=== PATIENT | female | born 1975 | race Asian ===

== ENCOUNTER 2021-12-10 13:38 | Emergency (ER) | payer MEDICAID ==
[~2021-12-10] VITALS: Ht 157.5 cm; Wt 46.4 kg
--- NOTE | 2021-12-10 14:05 | NUR ---
Patient is calm and cooperative laying down on stretcher
[2021-12-10 14:19] VITALS: BP 116/71
[2021-12-10 14:24] LABS: BASOPHILS # (AUTO) 0.1 X10'3 (0-0.2); BASOPHILS % (AUTO) 1.2 % (0-1); EOSINOPHILS # (AUTO) 0.6 X10'3 (0-0.9); EOSINOPHILS % (AUTO) 9.3 % (0-6); HEMATOCRIT 39.2 % (35.0-45.0); HEMOGLOBIN 13.6 g/dl (12.0-16.0); LYMPHOCYTES # (AUTO) 1.8 X10'3 (1.1-4.8); LYMPHOCYTES % (AUTO) 26.7 % (21-51); MEAN CORPUSCULAR HEMOGLOBIN 31.5 PG (27.0-31.0); MEAN CORPUSCULAR HGB CONC 34.7 g/dL (33.0-36.5); MEAN CORPUSCULAR VOLUME 90.6 FL (78-98); MEAN PLATELET VOLUME 7.2 FL (7.4-10.4); MONOCYTES # (AUTO) 0.7 X10'3 (0-0.9); MONOCYTES % (AUTO) 10.7 % (2-12); NEUTROPHILS # (AUTO) 3.5 X10'3 (1.8-7.7); NEUTROPHILS % (AUTO) 52.1 % (42-75); PLATELET COUNT 472 X10'3 (140-440); RED BLOOD COUNT 4.32 X10'6 (4.20-5.60); RED CELL DISTRIBUTION WIDTH 13.9 % (11.5-14.5); WHITE BLOOD COUNT 6.6 X10'3 (4.5-11.0)
[2021-12-10 14:48] LABS: URINE AMPHETAMINE SCREEN POSITIVE (Neg); URINE BARBITUATE SCREEN NEGATIVE (Neg); URINE BENZODIAZEPINES SCREEN NEGATIVE (Neg); URINE CANNABINOID SCREEN NEGATIVE (Neg); URINE COCAINE SCREEN NEGATIVE (Neg); URINE METHADONE SCREEN NEGATIVE (Neg); URINE OPIATE SCREEN NEGATIVE (Neg); URINE PHENCYCLIDINE SCREEN NEGATIVE (Neg)
[2021-12-10 14:49] LABS: ALANINE AMINOTRANSFERASE 24 U/L (12-78); ALBUMIN 3.5 G/DL (3.4-5.0); ALKALINE PHOSPHATASE 95 IU/L (46-116); ANION GAP 10 (8-16); BILIRUBIN,TOTAL 0.4 MG/DL (0.1-1.0); BLOOD UREA NITROGEN 19 MG/DL (7-18); BUN/CREATININE RATIO 22.6 (6.6-38.0); CALCIUM 8.1 MG/DL (8.5-10.1); CHLORIDE 107 MMOL/L (99-107); CREATININE 0.84 MG/DL (0.40-0.90); ETHANOL < 0.010 GM/DL (0.0-0.010); SODIUM 143 MMOL/L (135-145); TOTAL CARBON DIOXIDE 26.3 MMOL/L (24-32); TOTAL PROTEIN 6.9 G/DL (6.4-8.2); eGFR 74 ML/MIN
[2021-12-10 14:52] LABS: GLUCOSE 140 MG/DL (70-104); POTASSIUM 3.4 MMOL/L (3.5-5.1)
[2021-12-10 14:55] LABS: CLARITY,URINE CLOUDY (Clear); COLOR,URINE YELLOW (Yellow); GLUCOSE, URINE NEGATIVE (Neg); KETONES,URINE TRACE mg/dl (Neg); LEUKOCYTE ESTERASE ,URINE TRACE (Neg); NITRITES, URINE NEGATIVE (Neg); OCCULT BLOOD,URINE NEGATIVE (Neg); PROTEIN,URINE NEGATIVE (Neg); UROBILINOGEN,URINE 0.2 E.U/dL (0.2-1.0)
[2021-12-10 14:58] LABS: UA COLLECTION TYPE CLN CATCH MIDSTREAM
--- NOTE | 2021-12-10 15:01 | NUR ---
Patient laying on strecher appears to be sleeping.
[2021-12-10 15:03] LABS: ASPARTATE AMINO TRANSFERASE 17 U/L (10-37)
[2021-12-10 15:06] LABS: SQUAMOUS EPITHELIAL CELL,UR MANY /LPF (FEW)
[2021-12-10 15:08] LABS: CAL OXALATE CRYSTALS 4+ /HPF (NEGATIVE)
[2021-12-10 15:09] LABS: WBC,URINE 0-4 /HPF (0-4)
[2021-12-10 15:11] LABS: BACTERIA,URINE FEW /HPF (Neg)
--- NOTE | 2021-12-10 15:30 | NUR ---
Patient stepped out ER to smoke. Patient was redirected back to ER.
--- NOTE | 2021-12-10 16:00 | NUR ---
Patient is in room eating snacks.
--- NOTE | 2021-12-10 16:36 | NUR ---
Patient is asking to leave, pt was informed of need to wait for [facility].
--- NOTE | 2021-12-10 16:42 | NUR ---
Patient states she wants to leave that she just need a place to sleep, that she doesn't want to hurt herslef.
--- NOTE | 2021-12-10 16:55 | NUR ---
Patient ran out of emergancy department, security couldnt stop her since she was off property. Christopher rome called by construction secretary.
--- NOTE | 2021-12-10 17:00 | NUR ---
NANCY CONTACTED AND NOTIFIED OF PT LEAVING ER. 170
== END 2021-12-10 17:18 | disposition left against medical advice (07) ==
LOC: ER 13:39
DX: R45.851 Suicidal ideations (principal); F20.9 Schizophrenia, unspecified; Z20.822 Contact with and (suspected) exposure to COVID-19; F32.A Depression, unspecified; Z88.0 Allergy status to penicillin; Z79.899 Other long term (current) drug therapy
CPT/HCPCS: 36415; 80053; 80305; 80320; 81001; 84443; 85025; 87811; 99285

== ENCOUNTER 2022-11-17 16:34 | Emergency (ER) | payer MEDICAID, OTHER ==
[~2022-11-17] VITALS: Ht 156.2 cm; Wt 55.1 kg
[2022-11-17 17:35] LABS: BASOPHILS # (AUTO) 0.1 X10'3 (0-0.2); NEUTROPHILS # (AUTO) 5.3 X10'3 (1.8-7.7)
[2022-11-17 17:36] LABS: BASOPHILS % (AUTO) 1.3 % (0-1); EOSINOPHILS # (AUTO) 0.5 X10'3 (0-0.9); EOSINOPHILS % (AUTO) 4.9 % (0-6); HEMATOCRIT 35.9 % (35.0-45.0); LYMPHOCYTES # (AUTO) 2.4 X10'3 (1.1-4.8); LYMPHOCYTES % (AUTO) 26.5 % (21-51); MEAN CORPUSCULAR HEMOGLOBIN 29.2 PG (27.0-31.0); MEAN CORPUSCULAR HGB CONC 33.4 g/dL (33.0-36.5); MEAN CORPUSCULAR VOLUME 87.3 FL (78-98); MEAN PLATELET VOLUME 6.6 FL (7.4-10.4); MONOCYTES # (AUTO) 0.9 X10'3 (0-0.9); NEUTROPHILS % (AUTO) 57.3 % (42-75); PLATELET COUNT 594 X10'3 (140-440); RED BLOOD COUNT 4.11 X10'6 (4.20-5.60); RED CELL DISTRIBUTION WIDTH 14.2 % (11.5-14.5); WHITE BLOOD COUNT 9.2 X10'3 (4.5-11.0)
[2022-11-17 17:49] LABS: ALANINE AMINOTRANSFERASE 22 U/L (12-78); ALBUMIN 3.2 G/DL (3.4-5.0); ALBUMIN/GLOBULIN RATIO 0.9 (1.1-1.5); ALKALINE PHOSPHATASE 75 IU/L (46-116); ANION GAP 8 (8-16); ASPARTATE AMINO TRANSFERASE 21 U/L (10-37); BILIRUBIN,TOTAL 0.5 MG/DL (0.1-1.0); BLOOD UREA NITROGEN 14 MG/DL (7-18); BUN/CREATININE RATIO 18.4 (10.0-20.0); CALCIUM 8.9 MG/DL (8.5-10.1); CHLORIDE 103 MMOL/L (99-107); CREATININE 0.76 MG/DL (0.40-0.90); ETHANOL < 10 MG/DL (<10); GLUCOSE 88 MG/DL (70-104); POTASSIUM 3.5 MMOL/L (3.5-5.1); SODIUM 138 MMOL/L (135-145); TOTAL PROTEIN 6.6 G/DL (6.4-8.2); eGFR 82 ML/MIN
--- NOTE | 2022-11-17 18:20 | NUR ---
PT CAME OUT OF ROOM, SCREAMIMG WAS ASKED TO GO BACK TO ROOM BY INTAKE COORDINATOR. PT BECAME INCREASINGLY AGITATED AND ESCALATING. PT PUSHED GLASS DOOR TO ROOM WITH FORCE CAUSING IT TO SLAM THEN KICKED INTAKE COORDINATOR AND BEGAN STRIKING OUT AND SCREAMING CURSE WORDS AT TECH. NOTIFIED. PT ASSISTED TO BED AND PLACED IN 4 POINT RESTRAINTS PER MD ORDER. CSM INTACT, NAD. PLACED ON Q15M VS AND CHECKS. MEDS ADMIN PER ORDER W/ NO ASE NOTED. CRN AND AWARE.
[2022-11-17] MEDS ORDERED: LORazepam 2 mg/ml vial IM ONE ×2 (18:25→19:50)
[2022-11-17] MEDS ORDERED: diphenhydrAMINE 50 mg/ml inj IM ONE (18:25)
[2022-11-17] MEDS ORDERED: haloperidol lactate 5mg/ml inj IM ONE ×2 (18:25→19:50)
--- NOTE | 2022-11-17 19:27 | NUR ---
pt thrashing around in the bed. Instructed her to settle down, calmly, and she did. Will notify
--- NOTE | 2022-11-17 19:52 | NUR ---
PT THRASHING IN BED CONTINUSOULY TRYING TO GET CLIMB OOB. MD NOTIFIED AWAITING NEW ORDERS. RESTRAINTS CONT. WILL CONT TO MONITOR.
--- NOTE | 2022-11-17 22:57 | NUR ---
PT IS LAYING IN BED AND APPEARS TO BE ASLEEP. PT IS NOT FIGHTING RESTRAINTS AT THIS TIME.
--- NOTE | 2022-11-17 23:49 | NUR ---
UNABLE TO COMPLETE THE PTS MEDICAL HX THE PT IS CONFUSED AT THIS TIME. ALSO ATTEMPTED GENERAL ASSESSMENT. PT IS UNCOOPERATIVE WITH STAFF MEMBERS.
--- NOTE | 2022-11-18 00:11 | NUR ---
PT HAS AWOKE AND IS CALLING OUT. PT IS ALSO ATTEMPTING TO SIT UP AND PULL AT HER RESTRAINTS.
--- NOTE | 2022-11-18 00:48 | NUR ---
PT HAS AWOKE AGAIN AND IS CALLING OUT. PT IS ATTEMPTING TO FIGHT THE RESTRAINSTS AND GET OUT OF BED. ATTEMPTED TO ASK THE PT IF SHE HAS ANY NEEDS. PT IS NOT COMMUNICATING WITH STAFF AT THIS TIME.
--- NOTE | 2022-11-18 02:38 | NUR ---
PT IS AWAKE AGAIN AND CALLING OUT. ATTEMPTED TO REDIRECT PT AND ASK HER TO STOP YELLING. PT SHOUTED "SHUT UP" AND IS CONTINUING TO YELL AND FIGHT THE RESTRAINTS. MD SAWYER AWARE.
[2022-11-18] MEDS ORDERED: normal saline 1000ML IV soln IVB ONE (04:35)
[2022-11-18 05:09] LABS: CREATINE KINASE 144 U/L (26-192)
--- NOTE | 2022-11-18 07:13 | NUR ---
patient is resting quietly, while in bed.
--- NOTE | 2022-11-18 08:56 | NUR ---
patient was straight cathed for urine sample. no distress noted.
[2022-11-18 09:13] LABS: CLARITY,URINE CLEAR (Clear); COLOR,URINE YELLOW (Yellow); GLUCOSE, URINE NEGATIVE (Neg); KETONES,URINE TRACE mg/dl (Neg); LEUKOCYTE ESTERASE ,URINE NEGATIVE (Neg); NITRITES, URINE NEGATIVE (Neg); OCCULT BLOOD,URINE NEGATIVE (Neg); PROTEIN,URINE NEGATIVE (Neg); UROBILINOGEN,URINE 0.2 E.U/dL (0.2-1.0)
[2022-11-18 09:17] LABS: UA COLLECTION TYPE STRAIGHT CATH; URINE HCG NEGATIVE (NEG)
[2022-11-18 09:22] LABS: URINE AMPHETAMINE SCREEN POSITIVE (Neg); URINE BARBITUATE SCREEN NEGATIVE (Neg); URINE BENZODIAZEPINES SCREEN NEGATIVE (Neg); URINE CANNABINOID SCREEN NEGATIVE (Neg); URINE COCAINE SCREEN NEGATIVE (Neg); URINE METHADONE SCREEN NEGATIVE (Neg); URINE OPIATE SCREEN NEGATIVE (Neg); URINE PHENCYCLIDINE SCREEN NEGATIVE (Neg)
--- NOTE | 2022-11-18 09:32 | NUR ---
resident was changed intro green scrubs, compliant with care at this time. no distress noted.
--- NOTE | 2022-11-18 09:45 | NUR ---
krista sent pt packet to [facility]
--- NOTE | 2022-11-18 11:02 | NUR ---
RESTRAINTS REMOVED, PT IS BEING COOPERATIVE. WILL CONTINUE TO MONITOR
--- NOTE | 2022-11-18 13:30 | NUR ---
Patient transferred to ER overflow via gurney. Patient transferred to bed 22. She remains asleep. No s/sx of distress.
--- NOTE | 2022-11-18 14:33 | NUR ---
Patient appears to be asleep. She is in supine position with no s/sx of distress. Continuing to monitor.
--- NOTE | 2022-11-18 18:08 | NUR ---
Patient is sleeping quietly on her right side. No distress. In direct view from the nurses station.
--- NOTE | 2022-11-18 18:46 | NUR ---
Patient is up to bathroom. Saline lock in posterior right hand is dc'd, cath intact. Patient up to bathroom to void. Room changed to bed 25 to distance this patient from male patients. Patient was given a toiletries pack.
--- NOTE | 2022-11-18 20:14 | NUR ---
Patient is sleeping, low fowlers in bed. Knees flexed.
--- NOTE | 2022-11-18 22:13 | NUR ---
Patient awoke, finished her dinner. Returned to sleep.
--- NOTE | 2022-11-19 00:24 | NUR ---
Patient is sleeping quietly on her right side. No distress.
--- NOTE | 2022-11-19 00:25 | NUR ---
Patient sleeps quietly. No distress. In view from nurses station.
--- NOTE | 2022-11-19 02:16 | NUR ---
Patient is sleeping quietly on her left side. No distress. In view from nurses station.
--- NOTE | 2022-11-19 03:47 | NUR ---
Patient sleeping quietly.
--- NOTE | 2022-11-19 04:22 | NUR ---
Patient sleeping on her left side, no distress.
--- NOTE | 2022-11-19 07:00 | NUR ---
Assumed care of patient at 0625. Pt continues to rest comfortably in low leo's position. Respirations even and unlabored.
--- NOTE | 2022-11-19 09:00 | NUR ---
Pt sleeping comfortably, rr even and unlabored.
--- NOTE | 2022-11-19 09:57 | NUR ---
Pt awake and eating breakfast. Pt eagerly eating, declined second tray. Pt states she doesn't know why she is here. When told she was at [facility] dancing around in a diaper pt frowned and "ya, okay I remember." Pt began to get agiatated when asked about psych symptoms. Pt denies SI/HI, A/VH. Asked about schizophrenia pt again frowned and "ya, maybe a little." Pt began getting agitated with continued questions. Pt was alert to place, year, month, when asked who the president was pt stated "me...(then jibberish or a second language), [place]." Pt reports primary language is [place], asked if she speaks a second language "waray" (pt spelled this out.) Tox screen + amphetamines. Addendum: 11/19/22 at 1007 by ROB Pt denied ETOH and recreational drug use. "ya, I don't use any of that."
--- NOTE | 2022-11-19 11:25 | NUR ---
Pt resting comfortably with eyes closed, rr even and unlabored.
--- NOTE | 2022-11-19 13:26 | NUR ---
Pt resting comfortably, rr even and unlabored. Pt intermittenly asks when is she going to be discharged. Pt is waiting to be assessed by [facility].
--- NOTE | 2022-11-19 13:36 | NUR ---
Public Guardian at bedside, talking to pt about possible conservatorship.
--- NOTE | 2022-11-19 13:53 | NUR ---
Pt's legal last name is CORREGIDOR per [facility]. Registration notified to combine accts. [id number] is in the correct name.
--- NOTE | 2022-11-19 14:18 | NUR ---
Admitting at bedside finishing paperwork. Pt is appropriate.
--- NOTE | 2022-11-19 16:20 | NUR ---
Pt continues to rest comfortably with NAD. RR even and unlabored.
--- NOTE | 2022-11-19 18:30 | NUR ---
Assumed patient care. The patient has finished her meal. No distress. She is sleeping quietly.
--- NOTE | 2022-11-19 19:42 | NUR ---
Patient is sleeping in a prone position. No distress.
--- NOTE | 2022-11-19 21:36 | NUR ---
The patient is sleeping with her head towards the foot of the bed. She sleeps on her right side.
--- NOTE | 2022-11-19 23:07 | NUR ---
Patient continues to sleep. She has self repositioned in bed. No distress noted.
--- NOTE | 2022-11-20 02:14 | NUR ---
Patient continues to sleep quietly on her gight side. No distress.
--- NOTE | 2022-11-20 03:51 | NUR ---
Patient continues to sleep, head towards the foot of the bed. Good color, no distress.
--- NOTE | 2022-11-20 05:35 | NUR ---
Patient awoke to this writers voice. She has slept from around 1830 hours yesterday. The patient is now oriented to person and place. She denies S/I or H/I. Patient admits to audible hallucinations, "the voices are screaming hateful things." Patient denies visual hallucinations. The patient expresses a want to leave [facility]. The patient was advised by this commercial insurance underwriter that she would have to speak with [facility] worker this am. Patient returned to sleep.
--- NOTE | 2022-11-20 07:00 | NUR ---
Pt resting comfortably, pt has her head at the FOB. Respirations even and unlabored.
--- NOTE | 2022-11-20 07:40 | NUR ---
Pt has a history of being on Zyprexa 10 mg. Restarted medication. Received order from Dr. Balderrama.
[2022-11-20] MEDS ORDERED: olanzapine 10mg tablet PO ONE (07:43)
--- NOTE | 2022-11-20 08:49 | NUR ---
PT ELOPED FROM UNIT AT 0836. [employer] TR[employer] DRIVER AND SITTER WERE WITH SANCHEZ PATIENT. NOTIFIED SHANTAL ARELLANO, NURSING SUP- NORRIS AND NANCY.
[2022-11-20 13:41] VITALS: BP 111/77; PULSE 96; RESP 17; TEMP 97.9; O2SAT 94
[2022-11-20] MEDS ORDERED: olanzapine 10mg tablet PO SCH (21:00)
== END 2022-11-20 08:38 | disposition left against medical advice (07) ==
LOC: ER 16:34 → MERGE 16:34 → ER 11-20 08:38
DX: F29 Unspecified psychosis not due to a substance or known physiological condition (principal); Z20.822 Contact with and (suspected) exposure to COVID-19; F15.10 Other stimulant abuse, uncomplicated; F17.200 Nicotine dependence, unspecified, uncomplicated; F31.9 Bipolar disorder, unspecified; Z59.00 Homelessness unspecified; Z56.0 Unemployment, unspecified; Z88.1 Allergy status to other antibiotic agents
CPT/HCPCS: 36415; 80053; 80305; 80320; 81003; 81025; 82550; 84443; 85025; 87811; 96360; 96372; 99285; J1200; J1630; J2060; J7030; 96361

== ENCOUNTER 2023-01-03 09:56 | Emergency (ER) | payer MEDICAID ==
[~2023-01-03] VITALS: Ht 152.4 cm; Wt 52.3 kg
[2023-01-03 10:04] VITALS: BP 147/110; PULSE 118; TEMP 99.3; O2SAT 98
[2023-01-03 10:30] LABS: BASOPHILS # (AUTO) 0.1 X10'3 (0-0.2); EOSINOPHILS % (AUTO) 0 % (0-6); MEAN CORPUSCULAR HEMOGLOBIN 29.3 PG (27.0-31.0); MONOCYTES # (AUTO) 0.7 X10'3 (0-0.9); WHITE BLOOD COUNT 14.6 X10'3 (4.5-11.0)
--- NOTE | 2023-01-03 10:30 | NUR ---
Patient arrived from Main ED hallway to ED OF bed 25. Patient is disorganized and appears to be responding to internal stimuli. Pt having conversation with nobody in the room. Patient disheveled. "I did pray!" [employer] [facility] [employer] "I already prayed. Why are you saying that. Not you...."
[2023-01-03 10:32] LABS: BASOPHILS % (AUTO) 0.5 % (0-1); HEMATOCRIT 38.1 % (35.0-45.0); HEMOGLOBIN 12.7 g/dl (12.0-16.0); LYMPHOCYTES # (AUTO) 1.4 X10'3 (1.1-4.8); LYMPHOCYTES % (AUTO) 9.5 % (21-51); MEAN CORPUSCULAR HGB CONC 33.3 g/dL (33.0-36.5); MEAN CORPUSCULAR VOLUME 87.9 FL (78-98); MEAN PLATELET VOLUME 7.7 FL (7.4-10.4); MONOCYTES % (AUTO) 4.7 % (2-12); NEUTROPHILS # (AUTO) 12.5 X10'3 (1.8-7.7); NEUTROPHILS % (AUTO) 85.3 % (42-75); PLATELET COUNT 613 X10'3 (140-440); RED BLOOD COUNT 4.33 X10'6 (4.20-5.60); RED CELL DISTRIBUTION WIDTH 13.5 % (11.5-14.5)
[2023-01-03 10:42] LABS: ALANINE AMINOTRANSFERASE 45 U/L (12-78); ALBUMIN/GLOBULIN RATIO 0.9 (1.1-1.5); ALKALINE PHOSPHATASE 86 IU/L (46-116); ANION GAP 14 (8-16); ASPARTATE AMINO TRANSFERASE 65 U/L (10-37); BILIRUBIN,TOTAL 0.5 MG/DL (0.1-1.0); BLOOD UREA NITROGEN 19 MG/DL (7-18); BUN/CREATININE RATIO 32.8 (10.0-20.0); CALCIUM 9.8 MG/DL (8.5-10.1); CHLORIDE 101 MMOL/L (99-107); CREATININE 0.58 MG/DL (0.40-0.90); GLUCOSE 141 MG/DL (70-104); POTASSIUM 3.5 MMOL/L (3.5-5.1); SODIUM 136 MMOL/L (135-145); TOTAL CARBON DIOXIDE 20.6 MMOL/L (24-32); TOTAL PROTEIN 8.4 G/DL (6.4-8.2); eCRCL 88 ML/MIN; eGFR > 90 ML/MIN
[2023-01-03 10:53] LABS: ETHANOL < 10 MG/DL (<10); THYROID STIMULATING HORMONE 0.18 ulU/ml (0.34-4.50)
[2023-01-03] MEDS ORDERED: LORazepam 2 mg/ml vial IM ONE (11:00)
[2023-01-03] MEDS ORDERED: haloperidol lactate 5mg/ml inj IM ONE (11:00)
[2023-01-03] MEDS ORDERED: diphenhydrAMINE 50 mg/ml inj IM ONE (11:00)
--- NOTE | 2023-01-03 11:09 | NUR ---
Patient loud, crying and yelling. No person engaging with her. Responding to internal stimuli. RN asked patient for a urine sample and to get dressed in scrubs. Patient states "I'm leaving!". Patient disorganized and in distress. Continue to monitor.
--- NOTE | 2023-01-03 11:30 | NUR ---
RN gave patient medication I.M. Patient allowed RN to give her medication and continues with nonstop talking. Continue to monitor.
[2023-01-03 12:57] VITALS: RESP 16
--- NOTE | 2023-01-03 14:02 | NUR ---
Patient AWOL'd from [facility] around 8 days ago. Patient is on a T-Con.
--- NOTE | 2023-01-03 15:31 | NUR ---
Patient gave a urine. Patient still refusing to put on scrubs. Patient is very disorganized. Continue to monitor.
[2023-01-03 15:54] LABS: URINE AMPHETAMINE SCREEN POSITIVE (Neg); URINE BARBITUATE SCREEN NEGATIVE (Neg); URINE BENZODIAZEPINES SCREEN NEGATIVE (Neg); URINE CANNABINOID SCREEN NEGATIVE (Neg); URINE COCAINE SCREEN NEGATIVE (Neg); URINE METHADONE SCREEN NEGATIVE (Neg); URINE OPIATE SCREEN NEGATIVE (Neg); URINE PHENCYCLIDINE SCREEN NEGATIVE (Neg)
[2023-01-03 15:59] LABS: URINE HCG NEGATIVE (NEG)
[2023-01-03 16:00] LABS: BILIRUBIN,URINE NEGATIVE (Neg); CLARITY,URINE SLIGHTLY CLOUDY (Clear); COLOR,URINE YELLOW (Yellow); GLUCOSE, URINE NEGATIVE (Neg); KETONES,URINE TRACE mg/dl (Neg); LEUKOCYTE ESTERASE ,URINE NEGATIVE (Neg); NITRITES, URINE NEGATIVE (Neg); OCCULT BLOOD,URINE NEGATIVE (Neg); PH,URINE 6.5 (4.8-8.0); PROTEIN,URINE NEGATIVE (Neg)
[2023-01-03 16:02] LABS: UA COLLECTION TYPE VOIDED
[2023-01-03 16:07] LABS: BACTERIA,URINE FEW /HPF (Neg); RBC,URINE 0-2 /HPF (0-2); SQUAMOUS EPITHELIAL CELL,UR FEW /LPF (FEW); WBC,URINE 0-4 /HPF (0-4)
--- NOTE | 2023-01-03 17:19 | NUR ---
Patient eating dinner. No distress observed. Continue to monitor.
[2023-01-03] MEDS ORDERED: LORazepam 2 mg/ml vial ONE (19:30)
[2023-01-03] MEDS ORDERED: traZODone 50mg tablet PO SCH (20:00)
[2023-01-03] MEDS ORDERED: OLANZapine 5mg rapidly disint. tablet PO SCH (20:00)
== END 2023-01-03 19:52 ==
LOC: ER 09:56
DX: Z73.6 Limitation of activities due to disability (principal); Z20.822 Contact with and (suspected) exposure to COVID-19; F20.9 Schizophrenia, unspecified; Z88.1 Allergy status to other antibiotic agents
CPT/HCPCS: 36415; 80053; 80305; 80320; 81001; 81025; 84443; 85025; 87811; 96372; 99285; J1200; J1630; J2060

== ENCOUNTER 2023-03-19 12:05 | Emergency (ER) | payer MEDICAID ==
[~2023-03-19] VITALS: Ht 157.5 cm; Wt 50.0 kg
[2023-03-19 12:19] VITALS: BP 139/70; PULSE 104; O2SAT 96
[2023-03-19 12:41] LABS: HEMOGLOBIN 11.9 g/dl (12.0-16.0)
[2023-03-19 12:43] LABS: BASOPHILS # (AUTO) 0.1 X10'3 (0-0.2); BASOPHILS % (AUTO) 0.9 % (0-1); EOSINOPHILS # (AUTO) 0.4 X10'3 (0-0.9); EOSINOPHILS % (AUTO) 4.2 % (0-6); HEMATOCRIT 35.8 % (35.0-45.0); LYMPHOCYTES # (AUTO) 2.2 X10'3 (1.1-4.8); LYMPHOCYTES % (AUTO) 21.3 % (21-51); MEAN CORPUSCULAR HEMOGLOBIN 28.9 PG (27.0-31.0); MEAN CORPUSCULAR HGB CONC 33.2 g/dL (33.0-36.5); MEAN CORPUSCULAR VOLUME 87.1 FL (78-98); MONOCYTES # (AUTO) 0.8 X10'3 (0-0.9); MONOCYTES % (AUTO) 8.1 % (2-12); NEUTROPHILS # (AUTO) 6.7 X10'3 (1.8-7.7); NEUTROPHILS % (AUTO) 65.5 % (42-75); PLATELET COUNT 589 X10'3 (140-440); RED BLOOD COUNT 4.11 X10'6 (4.20-5.60); RED CELL DISTRIBUTION WIDTH 13.5 % (11.5-14.5); WHITE BLOOD COUNT 10.3 X10'3 (4.5-11.0)
[2023-03-19 13:00] LABS: ALANINE AMINOTRANSFERASE 31 U/L (12-78); ALBUMIN 3.6 G/DL (3.4-5.0); ALBUMIN/GLOBULIN RATIO 0.9 (1.1-1.5); ALKALINE PHOSPHATASE 100 IU/L (46-116); ANION GAP 6 (8-16); ASPARTATE AMINO TRANSFERASE 26 U/L (10-37); BILIRUBIN,TOTAL 0.5 MG/DL (0.1-1.0); BLOOD UREA NITROGEN 11 MG/DL (7-18); BUN/CREATININE RATIO 17.5 (10.0-20.0); CALCIUM 8.5 MG/DL (8.5-10.1); CHLORIDE 106 MMOL/L (99-107); CREATININE 0.63 MG/DL (0.40-0.90); ETHANOL < 10 MG/DL (<10); GLUCOSE 98 MG/DL (70-104); SODIUM 139 MMOL/L (135-145); TOTAL CARBON DIOXIDE 26.9 MMOL/L (24-32); TOTAL PROTEIN 7.5 G/DL (6.4-8.2); eCRCL 89 ML/MIN; eGFR > 90 ML/MIN
[2023-03-19 13:10] VITALS: RESP 17
[2023-03-19] MEDS ORDERED: potassium Cl 20 mEq SR tablet PO STA (13:45)
[2023-03-19 14:30] VITALS: TEMP 98.1
== END 2023-03-19 14:33 | disposition still patient (30) ==
LOC: ER 12:06
DX: F32.A Depression, unspecified (principal); E87.6 Hypokalemia
CPT/HCPCS: 36415; 80053; 80320; 85025; 99284; 99285